=== PATIENT | male | born 1980 | race Caucasian/White ===

== ENCOUNTER 2018-03-02 01:27 | Inpatient (IN) | END 2018-03-05 13:38 | disposition home or self-care (01) | DRG 897 ==

== ENCOUNTER 2019-05-09 06:47 | Emergency (ER) | payer MEDICAID ==
[~2019-05-09] VITALS: Ht 165.1 cm; Wt 96.3 kg
[~2019-05-09 06:47] MED LIST: CITA20TA11 GTB; LISI10TA2 PO; LORA-441 PO; ONDA4TAB8 PO; PARO-2 PO
[2019-05-09 06:51] VITALS: BP 175/111; PULSE 101; RESP 16; Ht 165.1 cm; Wt 96.3 kg
[2019-05-09] MEDS ORDERED: ONDANSETRON (ODT) 4 MG TAB ODT STA (08:07)
--- NOTE | 2019-05-09 08:11 | ERD ---
ER Documentation Chief Complaint Chief Complaint ANXIETY, HAS BEEN OUT OF MEDS X3 WEEKS, ALSO REPORTS CP HPI This is a 39-year-old male with a past medical history of hypertension, depressi on, chronic daily alcohol abuse who is presenting for increased anxiousness. The patient reports feeling unwell this morning which he suspects is related to trying to decrease his alcohol intake. The patient reports drinking, 1/5 of vodka a day, but over the last 1 to 2 days, he has been trying to cut back. He only drank 1 beer this morning. The patient endorses increased anxiousness, palpitations, jitteriness and nausea. The patient apparently reported chest pain in triage, but he does not endorse any chest discomfort or pain to me. He does not endorse shortness of breath. He does not endorse lightheadedness or dizziness. He has not vomited. The patient does also endorse falling 3 to 4 days ago and hitting his head. He is not on any blood thinners. He does not endorse headache or vision changes currently. The patient has had no focal deficits. The patient has had no wea kness or numbness or tingling to the face or extremities. Patient also reports being out of all of his medications for the last 3 weeks. He takes Paxil for depression and lisinopril for hypertension. The patient denies fever or chills. The patient does not endorse neck or back pain. The patient denies abdominal pain. The patient denies changes to bowel movements or urination. ROS All systems reviewed and are negative except as per history of present illness. Medications Home Meds Active Scripts Paroxetine Hcl* (Paxil*) 20 Mg Tablet, 20 MG PO DAILY, #30 TAB Prov:COURTNEY KAUFMAN MD 05/09/19 Lisinopril* (Lisinopril*) 10 Mg Tablet, 10 MG PO DAILY, #30 TAB Prov:COURTNEY KAUFMAN MD 05/09/19 Lorazepam* (Ativan*) 0.5 Mg Tablet, 0.5 MG PO Q8 PRN for CONTROL WITHDRAWAL SYMPTOMS, #10 TAB Prov:COURTNEY KAUFMAN MD 05/09/19 Ondansetron Hcl* (Zofran*) 4 Mg Tablet, 4 MG PO Q6H PRN for NAUSEA AND OR VOMI TING, #30 TAB Prov:COURTNEY KAUFMAN MD 05/09/19 Citalopram Hydrobromide* (Celexa*) 20 Mg Tablet, 40 MG GTB DAILY for 30 Days, TAB Prov:JENNIFER RENNER MD 03/05/18 Allergies Allergies: Coded Allergies: No Known Drug Allergies (Verified Allergy, Unknown, 03/01/18) PMhx/Soc History of Surgery: No Anesthesia Reaction: No Hx Neurological Disorder: No Hx Respiratory Disorders: No Hx Cardiac Disorders: Yes (Hypertension) Hx Psychiatric Problems: Yes (DEPRESSION ) Hx Miscellaneous Medical Probl: No Hx Alcohol Use: Yes (daily) Hx Substance Use: Yes Hx Tobacco Use: Yes FmHx Family History: No diabetes Physical Exam Vitals Vital Signs Date Temp Pulse Resp B/P (MAP) Pulse Ox O2 O2 Flow FiO2 Time Delivery Rate 05/09/19 98.8 101 16 175/111 98 06:51 (132) Physical Exam Const: No acute distress Head: Small abrasion to the right forehead. Eyes: Normal Conjunctiva ENT: Normal External Ears, Nose and Mouth. Neck: Full range of motion. No meningismus. Resp: Clear to auscultation bilaterally Cardio: Regular rate and rhythm, no murmurs Abd: Soft, non tender, non distended. Normal bowel sounds Skin: No petechiae or rashes Back: No midline or flank tenderness Ext: No cyanosis, or edema Neur: Awake and alert Psych: Anxious Results 24 hrs Current Medications Medications Dose Sig/Zane Start Time Status Last (Trade) Ordered Route PRN Stop Time Admin Dose Reason Admin Lorazepam 1 mg ONCE ONCE 05/09/19 05/09/19 (Ativan) PO 08:30 08:14 05/09/19 08:31 Ondansetron 8 mg ONCE STAT 05/09/19 DC 05/09/19 HCl (Zofran ODT 08:07 08:14 Odt) 05/09/19 08:08 Procedures/MDM MDM The patient's presentation warrants further investigation. Previous medical records, if available, were reviewed. EKG EKG read by me: Rate/Rhythm: Regular rate and rhythm at a rate of 99 bpm Intervals: Normal [place]: Normal Impression: No evidence of acute ischemia or arrhythmia TREATMENT/DISPOSITION The patient presents for mild alcohol withdrawal. The patient does endorse drinking heavily up until about 1 to 2 days ago. He does want to change his life and is trying to quit drinking. However, since decreasing his alcohol intake, the patient has had symptoms of an anxiety reaction. I do suspect this to be related to alcohol withdrawal. I do not see any significant complications of withdrawal at this time. The patient is not tachycardic. He is not confused. There is no evidence of delirium. The patient does not have a history of delirium tremens or alcohol withdrawal related seizures. The patient was given a dose of Ativan in the emergency department. The patient was also given a dose of Zofran for nausea. This did help to improve his symptoms. I discussed the possibility of discharging the patient with a prescription for Ativan. The patient reports that he has been in rehab in the past and wants to go back. The patient reports that he can call his past rehab center. We will also provide him resources for rehabilitation. The risks and benefits of a prescription for benzodiazepine were discussed with the patient. The patient is understanding that concomitant use of benzodiazepines and alcohol could be extremely dangerous, leading to increased confusion, respiratory depression, fall, trauma, permanent disability and even . The patient reports a desire to quit drinking and understands that he cannot drink and use this medication together. After this discussion, I did opt to provide the patient a prescription for a short course of Ativan to help with withdrawal symptoms. The patient presents with a head injury as well, which was sustained 3 days ago. The patient was evaluated fully without evidence of emergent posttraumatic pathology. The patient has no focal deficits. I've low suspicion for intracranial pathology. I have low suspicion for cerebral ischemia or intracranial hemorrhage. The patient has no cervical spine tenderness. He can move his neck in all directions without any pain. As stated above, he does not have any focal deficits. He is not altered or intoxicated. He does not have any distracting injuries. The patient's cervical spine was clinically cleared using the Nexus C-spine rule. The patient does not have any saddle anesthesia. He has not been incontinent of urine or stool. He has not had any retention of urine or stool. I have low suspicion for spinal cord injury. The patient's EKG is normal. I do not suspect a cardiopulmonary process at this time. I do not suspect acute coronary syndrome. There is no evidence of pne umonia or pneumothorax or pleural effusions or pulmonary edema. I do not suspect thoracic aortic aneurysm or dissection. The patient does not have signs concerning for esophageal tear or rupture. The patient has no clinical signs of pericardial effusion or tamponade. I have decreased suspicion of viscus perforation as possible referred pain. The patient does not have a history of heart failure and I have low suspicion for this. The patient does not have a diagnosis of COPD and is not wheezing today. The patient is not tachypneic or hypoxic. The patient is breathing comfortably and without pleuritic pain. The patient is not on hormonal therapy. The patient has no history of clotting or bleeding disorders. The patient has no calf tenderness. The patient has had no hemoptysis. I have decreased suspicion for PE. The patient's troponin and EKG are reassuring. I have low suspicion for acute coronary syndrome. The patient does endorse running out of his lisinopril and Paxil. These medications may be refilled at this time. DISCHARGE Upon reevaluation of the patient, symptoms have improved. No emergent diagnoses were identified. At this time, I feel that the patient stable for discharge. The patient was instructed to follow-up with a primary care physician in 1-3 days. The patient will be given strict precautions with which to return to the emergency department. Prescriptions: Paxil, lisinopril, Ativan, Zofran The patient's blood pressure was elevated at greater than 120/80 while in the emergency department. The patient was otherwise stable with no evidence of hypertensive urgency or emergency. The patient does not require admission for blood pressure control. I have discussed with the patient the risks of hypertension. I have instructed the patient to return to the ER for any new or worsening symptoms including chest pain, shortness of breath, headache, blurred vision, confusion, nausea, vomiting or LOC. I have advised the patient to follow up with the primary care physician for outpatient monitoring and treatment for hypertension in 1-3 days. DISCLAIMER Inadvertent spelling and grammatical errors are likely due to EHR/dictation software use and do not reflect on the overall quality of patient care. Note that the electronic time recorded on this note does not necessarily reflect the actual time of the patient encounter. Departure Diagnosis: Primary Impression: Alcohol withdrawal Complication of substance-induced condition: uncomplicated Qualified Codes: F10.230 - Alcohol dependence with withdrawal, uncomplicated Additional Impressions: Hypertension Hypertension type: unspecified Qualified Codes: I10 - Essential (primary) hypertension Depression Depression Type: unspecified Qualified Codes: F32.9 - Major depressive disorder, single episode, unspecified Noncompliance with medication regimen Head trauma Encounter type: sequela Qualified Codes: S09.90XS - Unspecified injury of head, sequela Anxiety reaction Condition: Stable Patient Instructions: Alcohol Withdrawal, High Blood Pressure (Hypertension), Depression Additional Instructions: Thank you for for coming to [facility] for your care today. Please ask your nurse or provider if you have questions about your care today and do not leave until all your questions have been answered. Please use any medications given as directed and follow-up with your doctor (or the doctor you were referred to) in the next 1-3 days. If you do not have a primary care doctor you may follow up at the [facility] or [facility] (listed below). You may also use motrin and tylenol as needed for fever and/or pain unless instructed otherwise by your provider or nurse. Indications for more urgent follow-up have been discussed, but you may return to the Emergency Department at ANY time for any worrisome or worsening symptoms. If you have abdominal pain, please know that no test or exam you received is perfect and you should follow up within 8 hours for continued pain. If you had any imaging studies today, such as an X-Ray or CT Scan, these studies will be reviewed later by a radiologist. You will be called if there are important findings that were not identified today, so make sure the contact information you provided at registration is correct. If you received any narcotic pain control medicine today, such as Vicodin, Morphine or Dilaudid, your coordination and judgment may be affected for a number of hours. Please do not drive or operate heavy machinery, and you may want someone to assist you at home. If you were given a prescription for narcotic medication, be aware that it is very addictive- use sparingly and only if necessary. PLEASE SEEK FURTHER EVALUATION AND MANAGEMENT AT YOUR DOCTORS OFFICE WITHIN THE NEXT 1-3 DAYS. IT IS YOUR RESPONSIBILITY TO MAKE AN APPOINTMENT FOR FOLOW-UP CARE. IF YOU HAVE A PRIMARY DOCTOR, PLEASE CALL THEIR OFFICE TO SCHEDULE AN APPOINTMENT FOR FOLLOW UP. IF YOU DO NOT HAVE A PRIMARY DOCTOR YOU CAN CALL OUR PHYSICIAN REFERRAL HOTLINE AT IF YOU CAN NOT AFFORD TO SEE A PHYSICIAN YOU CAN CHOSE FROM THE FOLLOWING [facility] OR CRITICAL ACCESS [facility] CLINICS: [facility] [address] [facility] [address] [email or web address] [address] [facility] [address] [facility] [address] [facility] [facility] [address] [place] [address] [facility] [address] [place] [address] [facility] [address] [place] [address] COURTNEY KAUFMAN MD May 09, 2019 08:11
[2019-05-09] MEDS ORDERED: LORAZEPAM 1 MG TAB PO ONE (08:30)
== END 2019-05-09 08:43 | disposition home or self-care (01) ==
LOC: FTE 06:47
DX: F10.230 Alcohol dependence with withdrawal, uncomplicated (principal); I10 Essential (primary) hypertension; F32.9 Major depressive disorder, single episode, unspecified; S00.81XA Abrasion of other part of head, initial encounter; F41.1 Generalized anxiety disorder; F17.210 Nicotine dependence, cigarettes, uncomplicated; X58.XXXA Exposure to other specified factors, initial encounter; Z91.14 Patient's other noncompliance with medication regimen
CPT/HCPCS: 93005; Z7502; Z7610